=== PATIENT | male | born 1965 | race Caucasian/White ===

== ENCOUNTER 2023-08-31 02:49 | Emergency (ER) | payer MEDICAID ==
[~2023-08-31] VITALS: Ht 177.8 cm; Wt 94.3 kg
[2023-08-31 02:55] VITALS: BP 180/82; PULSE 75; RESP 18; TEMP 97; O2SAT 100
[2023-08-31] MEDS ORDERED: METF-346 PO ×2 (03:34→13:01)
[2023-08-31] MEDS ORDERED: CIPR500T4 PO ×2 (03:34→13:01)
[2023-08-31] MEDS ORDERED: LISI20TA29 PO ×2 (03:34→13:01)
[2023-08-31 03:40] VITALS: BP 180/82; PULSE 75; RESP 18; TEMP 206.6; O2SAT 100
== END 2023-08-31 03:40 | disposition home or self-care (01) ==
LOC: MED 02:49
DX: A09 Infectious gastroenteritis and colitis, unspecified (principal); J45.909 Unspecified asthma, uncomplicated; I10 Essential (primary) hypertension; E11.9 Type 2 diabetes mellitus without complications; Z79.4 Long term (current) use of insulin; Z79.899 Other long term (current) drug therapy
CPT/HCPCS: 99283